=== PATIENT | female | born 2000 | race Caucasian/White ===

== ENCOUNTER 2021-12-28 06:50 | Emergency (ER) | payer OTHER ==
[~2021-12-28 06:50] MED LIST: COLACE100 MG PO; IBUPROFEN800 MG PO; PRENATAL FORMU1 EACH PO; ZOFRAN8 MG PO
[2021-12-28 08:18] LABS: BASOPHIL 0.6 % (0-2); EOSINOPHIL 0.2 % (0-5); HGB 8.4 g/dl (12.5-16.0); LYMPHOCYTE 4.2 % (15-48); MCH 17.7 pg (25.0-31.0); MCV 63.3 fL (78.0-100.0); MONOCYTE 6.8 % (0-12); MPV 9.3 fL (6.0-9.5); NRBC 0; PLT 396 K/uL (150-400); RBC 4.74 M/uL (4.20-5.40); RDW 16.9 % (11.5-14.0); WBC 5.4 K/uL (4.0-10.5)
[2021-12-28 08:19] LABS: BILIRUBIN NEGATIVE (NEGATIVE); BLOOD NEGATIVE Ery/uL (NEGATIVE); CLARITY CLEAR (CLEAR); COLOR YELLOW (YELLOW); GLUCOSE (U) NORMAL (NORMAL); LEUKOCYTES 2+ Leu/uL (NEGATIVE); NITRITE NEGATIVE (NEGATIVE); PROTEIN NEGATIVE (NEGATIVE); UROBILINOGEN 0.2 mg/dL (0.2-1.0); pH 6.5 (5.0-9.0)
[2021-12-28 08:26] LABS: BACTERIA 1+
[2021-12-28 08:34] LABS: ALBUMIN 3.9 g/dL (3.4-5.0); BILIRUBIN - TOTAL 0.3 mg/dL (0.2-1.0); BUN/CREAT RATIO (CALC) 13.2 RATIO; CREATININE 0.53 mg/dL (0.51-0.95); GLOBULIN (CALCULATION) 3.6 g/dL; POTASSIUM 4.1 mmol/L (3.5-5.1); TOTAL PROTEIN 7.5 g/dL (6.4-8.2)
[2021-12-28 08:44] LABS: INFLUENZA A NAA NEGATIVE (NEGATIVE)
[2021-12-28 08:46] LABS: CORONAVIRUS 2019 SARS-COV-2 POSITIVE (NEGATIVE)
[2021-12-28] MEDS ORDERED: ONDANSETRON ODT4 MG PO (09:45)
== END 2021-12-28 10:45 | disposition home or self-care (01) ==
LOC: FER 06:50
PROVIDERS: Emergency Medicine
DX: O98.511 Other viral diseases complicating pregnancy, first trimester (principal); U07.1 COVID-19; O99.011 Anemia complicating pregnancy, first trimester; Z3A.01 Less than 8 weeks gestation of pregnancy; Z28.310 Unvaccinated for COVID-19
CPT/HCPCS: 36415; 76801; 80053; 81001; 84703; 85025; J2405; J7030; U0002

== ENCOUNTER 2022-01-03 12:25 | Emergency (ER) | payer OTHER ==
[~2022-01-03 12:25] MED LIST changes: +ONDANSETRON ODT4 MG PO
[2022-01-03 14:00] LABS: BILIRUBIN 1+ mg/dL (NEGATIVE); BLOOD NEGATIVE Ery/uL (NEGATIVE); CLARITY CLEAR (CLEAR); COLOR YELLOW (YELLOW); GLUCOSE (U) NORMAL (NORMAL); LEUKOCYTES 3+ Leu/uL (NEGATIVE); NITRITE NEGATIVE (NEGATIVE); PROTEIN 1+ mg/dL (NEGATIVE); UROBILINOGEN 0.2 mg/dL (0.2-1.0)
[2022-01-03 14:05] LABS: BACTERIA 1+
[2022-01-03 14:06] LABS: AMORPHOUS URATES CRYSTALS TRACE
[2022-01-03 14:26] LABS: BASOPHIL 0.2 % (0-2); EOSINOPHIL 0 % (0-5); HGB 9.1 g/dl (12.5-16.0); LYMPHOCYTE 33.9 % (15-48); MCH 17.8 pg (25.0-31.0); MCHC 28.4 g/dL (32.0-36.0); MCV 62.6 fL (78.0-100.0); MONOCYTE 8.6 % (0-12); MPV 9.4 fL (6.0-9.5); NEUTROPHIL 56.9 % (41-80); NRBC 0; PLT 312 K/uL (150-400); RBC 5.11 M/uL (4.20-5.40); RDW 16.8 % (11.5-14.0); WBC 4.8 K/uL (4.0-10.5)
[2022-01-03 15:08] LABS: ALBUMIN 3.9 g/dL (3.4-5.0); BILIRUBIN - TOTAL 0.3 mg/dL (0.2-1.0); BUN/CREAT RATIO (CALC) 18.9 RATIO; CREATININE 0.53 mg/dL (0.51-0.95); POTASSIUM 4.1 mmol/L (3.5-5.1); TOTAL PROTEIN 7.9 g/dL (6.4-8.2)
[2022-01-03] MEDS ORDERED: DICLEGIS DR 101 EACH PO (17:53)
[2022-01-03] MEDS ORDERED: CEPHALEXIN500 MG PO (17:55)
== END 2022-01-03 18:33 | disposition home or self-care (01) ==
LOC: FER 12:25
PROVIDERS: Physician Assistant
DX: O21.9 Vomiting of pregnancy, unspecified (principal); O99.891 Other specified diseases and conditions complicating pregnancy; R82.71 Bacteriuria; Z86.16 Personal history of COVID-19; Z28.310 Unvaccinated for COVID-19
CPT/HCPCS: 36415; 80053; 81001; 83690; 85025; J2765; J7030